=== PATIENT | female | born 1975 | race Caucasian/White ===

== ENCOUNTER → 2020-04-13 | Outpatient (CLI) | payer OTHER ==
[~2020-04-13] MED LIST: Cipro500 MG PO; DULO60; GABA300 PO
== END | disposition home or self-care (01) ==
LOC: LAB 14:30 → LAB SHORT 14:30
DX: R30.0 Dysuria (principal)
CPT/HCPCS: 87077; 87086; 87186

== ENCOUNTER 2023-05-31 03:34 | Emergency (ER) | payer OTHER ==
[~2023-05-31] VITALS: Ht 157.5 cm; Wt 79.4 kg
[2023-05-31 06:49] VITALS: BP 99/60
== END 2023-05-31 06:50 | disposition home or self-care (01) ==
LOC: ER 03:34
DX: M25.571 Pain in right ankle and joints of right foot (principal); F17.290 Nicotine dependence, other tobacco product, uncomplicated; Z88.0 Allergy status to penicillin
CPT/HCPCS: 73600; 99283-25